=== PATIENT | female | born 1960 | race Caucasian/White ===

== ENCOUNTER 2018-01-30 07:09 | Day surgery (SDC) | payer OTHER ==
--- NOTE | 2018-01-09 16:47 | GHP ---
[f rep st] PREOP HISTORY AND PHYSICAL DATE OF ADMISSION: 01/30/2018 PLANNED PROCEDURE: Hysteroscopy with morcellation of endometrial tissue for diagnosis of thickened e ndometrium with history of polyp on biopsy. INDICATIONS: Patient is a 57-year-old, zero, who has a known history of fibroid uterus on he r right side. When she was premenopausal, she had heavy periods. She had been managed by Dr. Bell , who told her that the fibroid and the periods would resolve with menopause. The patient has not wells d any bleeding since menopause at age 51. She developed a twinge on her side and due to her history of a fibroid, she had an ultrasound done which showed a thickened endometrium. An endometrial biopsy was performed by Dr. Bell, which showed fragments of endometrium and tubal metaplastic endometrial glands and lower uterine segment, many polypoid fragments noted. Pelvic ultrasound had shown a thic kened endometrium. An ultrasound was performed on 12/15, which showed a uterus measuring 5.4 x 2.6 x 4.1 cm with an endometrium of 1 cm, which is heterogeneous in texture with some vascularity within it . She has a 2.2 x 2.6 x 2.8 cm fibroid and a 3.85 cm fibroid, and normal ovaries. Management option s were reviewed with the patient. Even the patient has not had any postmenopausal bleeding, because of the persistent thickened endometrium and possible endometrial polyp, recommendation was to proceed to proceed with a hysteroscopy with morcellation of endometrial tissue. Risks and benefits of the p rocedure have been reviewed with the patient and patient has been properly consented. PAST MEDICAL HISTORY: Fibroid uterus, history of menorrhagia, hypertension. The patient had discont inued her lisinopril because she did not like taking medications, but she had elevated blood pressure in our office at her annual exam of 160/100. She has since resumed taking the lisinopril and is fee ling fine on it and her blood pressure in the office was 130/80. She also has a history of having dy splastic moles. MEDICATIONS: Lisinopril. PAST SURGICAL HISTORY: Appendectomy, leg surgery to repair her leg broken in 3 places. She had fabiana and plates placement and removal, wrist surgery, knee surgery. ALLERGIES: No known drug allergies. SOCIAL HISTORY: The patient is . She denies tobacco or drug use. She does drink alcohol, 2 beverages a week. She is a teacher. FAMILY MEDICAL HISTORY: Noncontributory. POT RELINER HISTORY: Menarche age 14. Periods were heavy and she had fibroid uterus. She has been menop ausal since 51. She is a zero; however, she does have 2 children adopted from [facility]. Sh e denies history of any abnormal Pap smears or sexually transmitted diseases. REVIEW OF SYSTEMS: 10-point review of systems is negative. PHYSICAL EXAM: VITAL SIGNS: Stable. Her blood pressure is 130/80. Her weight is 141. GENERAL VERO EARANCE: Alert and oriented x3. MUSCULOSKELETAL: Grossly intact. PSYCH: Appropriate affect. NEC K: Mobile and supple. HEART: Rate is irregularly irregular. LUNGS: Clear to auscultation bilater ally. ABDOMEN: Soft, nondistended, nontender. EXTREMITIES: Reveal no calf tenderness or edema. G U: Pelvic exam reveals a mobile uterus with a stenotic cervix. No adnexal masses are noted. Pelvic ultrasound is described above. ASSESSMENT AND PLAN: A 57-year-old zero with a thickened endometrium and a history of a poss ible polyp on endometrial biopsy. The patient will undergo a hysteroscopy with morcellation of endom etrial tissue. She has had known cervical stenosis and so she will be pretreated with Cytotec. Risk s of the surgery have been reviewed extensively with the patient and patient has been properly consen robb. /[id number]/MODL
[2018-01-30] MEDS ORDERED: LIDOCAINE 1% 2 ML INJ ID PRN (07:23)
[2018-01-30] MEDS ORDERED: LR 1,000 ML IV ONE (07:23)
[2018-01-30] MEDS ORDERED: MIDAZOLAM 2 MG/2 ML VIAL IVP ONE (07:56)
--- NOTE | 2018-01-30 07:56 | PDANEPAE ---
ANE History of Present Illness here for hysteroscopy ANE Past Medical History - Cardiovascular History Hx Hypertension: Yes Hx Arrhythmias: No Hx Chest Pain: No Hx Coronary Artery / Peripheral Vascular Disease: No Hx CHF / Valvular Disease: No Hx Palpitations: No - Pulmonary History Hx COPD: No Hx Asthma/Reactive Airway Disease: No Hx Recent Upper Respiratory Infection: No Hx Oxygen in Use at Home: No Hx Sleep Apnea: No Sleep Apnea Screening Result - Last Documented: Negative - Neurologic History Hx Cerebrovascular Accident: No Hx Seizures: No Hx Dementia: No - Endocrine History Hx Diabetes: No - Renal History Hx Renal Disorders: No - Liver History Hx Hepatic Disorders: No - Neurological & Psychiatric Hx Hx Neurological and Psychiatric Disorders: No - Cancer History Hx Cancer: No - Congenital Disorder History Hx Congenital Disorders: No - GI History Hx Gastrointestinal Disorders: No - Other Health History Other Health History: DYSMENORREA - Chronic Pain History Chronic Pain: No - Surgical History Prior Surgeries: 03/21 MEDIAL MENISCUS. 12/18 WRIST REPAIR. 2010 LEG BONE REPAIR ANE Review of Systems Review of systems is: negative Review of Systems: - Exercise capacity Exercise capacity: >=4 METS METS (RN): 6 METS ANE Patient History - Allergies Allergies/Adverse Reactions: No Known Allergies Allergy (Verified 01/23/18 16:43) - Home Medications Home Medications: Lisinopril 01/23/18 [Last Taken 01/29/18] - NPO status NPO Since - Liquids (Date): 01/29/18 NPO Since - Liquids (Time): 21:30 NPO Since - Solids (Date): 01/29/18 NPO Since - Solids (Time): 19:00 - Smoking Hx Smoking Status: Former smoker - Family Anes Hx Family Hx Anesthesia Complications: NONE ANE Labs/Vital Signs - Vital Signs Blood Pressure: 145/85 Heart Rate: 59 Respiratory Rate: 16 O2 Sat (%): 95 Height: 180.34 cm Weight: 63.503 kg ANE Physical Exam - Airway Neck exam: FROM Mallampati Score: Class 1 - Pulmonary Pulmonary: no respiratory distress - Cardiovascular Cardiovascular: regular rate and rhythym - ASA Status ASA Status: II ANE Anesthesia Plan Anesthesia Plan: GA with mask
[2018-01-30] MEDS ORDERED: PROPOFOL/EMULSION 500 MG/50 ML BOTTLE IV ONE (08:13)
[2018-01-30] MEDS ORDERED: fentaNYL 100 MCG/2 ML INJ ONE (08:14)
--- NOTE | 2018-01-30 08:14 | PDHPUP ---
History & Physical Update H&P update statement: This history and physical update is based on an assessment of the patient which was completed after admission or registration (within 24 hours), but prior to the surgery/procedure. H&P update: H&P reviewed & patient examined, no change in patient's condition since H&P completed
[2018-01-30] MEDS ORDERED: SILVER NITRATE APPLICATOR 1 APPL TP ONE (08:24)
[2018-01-30] MEDS ORDERED: NALOXONE HCL 0.4 MG/ML INJ IVP PRN (09:34)
[2018-01-30] MEDS ORDERED: HYDROmorphONE/DILAUDID 1 MG/ML INJ IVP PRN (09:34)
[2018-01-30] MEDS ORDERED: ONDANSETRON 4 MG/2 ML VIAL IVP PRN (09:34)
[2018-01-30] MEDS ORDERED: fentaNYL 100 MCG/2 ML INJ IVP PRN (09:34)
[2018-01-30] MEDS ORDERED: DEXAMETHASONE 4 MG/ML VIAL IVP PRN (09:34)
[2018-01-30] MEDS ORDERED: ALBUTEROL 3 ML DEYVIAL IH PRN (09:34)
[2018-01-30] MEDS ORDERED: KETOROLAC 30 MG/1 ML SDV IVP ONE (09:35)
[2018-01-30] MEDS ORDERED: KETOROLAC 15 MG/1 ML SDV ONE (09:44)
[2018-01-30] MEDS ORDERED: KETOROLAC 30 MG/1 ML SDV ONE (09:45)
--- NOTE | 2018-01-30 09:59 | GOP ---
[f rep st] OPERATIVE REPORT DATE OF OPERATION: 01/30/2018 SURGEON: Chantal Ace, ANESTHESIA: Sedation. ANESTHESIOLOGIST: Eduardo Oviedo. PREOPERATIVE DIAGNOSIS: Thickened endometrium. POSTOPERATIVE DIAGNOSIS: Thickened endometrium, endometrial polyp and submucosal fibroid. PROCEDURE PERFORMED: Hysteroscopy with morcellation of endometrial polyp and endometrial fibroid. FINDINGS: Mobile small postmenopausal midposition uterus with no adnexal masses. Hysteroscopic find ings diffusely thin endometrium with exception of several endometrial polyps and a submucosal fibroid . SPECIMENS: Endometrial polyp and fibroid. INDICATIONS: Patient is a 57-year-old 0, who had a known history of fibroid uterus. She had a dull twinge in her side and her pelvis, and due to the history of a fibroid, she had an ultrasound , which showed a thickened endometrium. Endometrial biopsy was performed by her previous provider, which showed fragments of an endometrium o f a possible endometrial polyp. She was told no further followup was needed. She followed up with kriss oquendo and we discussed because the endometrium was 1 cm and the possibility of abnormal pathology with a thickened endometrium, recommendation would be to proceed with a hysteroscopy with morcellation of en dometrial tissue. The patient was agreeable to this. Risks and benefits of the procedure were revie wed with the patient and the patient was properly consented. DESCRIPTION OF PROCEDURE: Patient was taken to the operating room with intravenous fluids in place. She was then placed on the operating room table in the dorsal supine position where anesthesia was o btained. She was then repositioned into the dorsal lithotomy position with the Yellofin stirrups and prepped and draped in the normal sterile fashion. Exam under anesthesia revealed a mobile small pos tmenopausal uterus with no adnexal masses. A speculum was then placed in the patient's vagina. An A llis clamp was used to grasp the anterior lip of the cervix. The small postmenopausal stenotic cervi x was then carefully dilated to allow for the introduction of a 6 mm operative hysteroscope. The hys teroscope was then introduced with fluid medium running. The endometrial tissue was noted to be thin with the exception of several polyps in the patient's anterior left side of her uterus. The morcell ator was then introduced after calibration was performed and morcellation of the endometrial polyps w ere performed. Following completion of the morcellation, a submucosal fibroid was noted in the upper anterior left portion behind where the polyps had been. A fibroid morcellator was then introduced, and a good portion of the fibroid was able to be resected. Because the patient is postmenopausal and not having periods and I did not want to need to further dilate her cervix to get a larger fibroid m orcellator through the operative hysteroscope, I discontinued the procedure because not all the fibro id was able to be resected at that time. Bleeding was noted to be minimal. Instruments were then re moved from the patient's vagina. Patient was returned to the dorsal supine position where she was ea sily awoken from anesthesia. Sponge count was correct. The patient was transported to recovery room in stable condition. /[id number]/MODL
[2018-01-30] MEDS ORDERED: KETOROLAC 15 MG/1 ML SDV IVP ONE (10:00)
[2018-01-30] MEDS ORDERED: PETROLAT,WHT/MIN OIL/SOD CHL 3.5 GM OPHT.OINT EACHEYE PRN (10:02)
[2018-01-30 10:46] VITALS: BP 115/80
== END 2018-01-30 10:48 | disposition home or self-care (01) ==
LOC: FSGY 07:09
PROVIDERS: ATTEND Obstetrics & Gynecology
PROC: 0UDB8ZX Extraction of Endometrium, Via Natural or Artificial Opening Endoscopic, Diagnostic (ICD-10-PCS; principal; 2018-01-30 08:30)
DX: N84.0 Polyp of corpus uteri (principal); R93.8 Abnormal findings on diagnostic imaging of other specified body structures
CPT/HCPCS: 58558; C1782; J1885; J2250; J2704; J3010

== ENCOUNTER → 2018-06-26 | Outpatient (CLI) | payer OTHER | LOC: GIMAGING 08:55 → EDSTATUS 15:36 | PROVIDERS: ATTEND Family Medicine | DX: M41.86 Other forms of scoliosis, lumbar region (principal); M47.896 Other spondylosis, lumbar region; M53.86 Other specified dorsopathies, lumbar region | CPT/HCPCS: 72100-PO; 73502-PO ==